=== PATIENT | male | born 1965 | race Caucasian/White ===

== ENCOUNTER 2017-12-17 19:16 | Inpatient (IN) | payer MEDICARE, MEDICAID ==
[~2017-12-17] VITALS: Ht 203.2 cm; Wt 130.2 kg
[2017-12-17] MEDS ORDERED: LUBI24CA5 PO (19:57)
[2017-12-17] MEDS ORDERED: CHOL200026 PO (19:57)
[2017-12-17] MEDS ORDERED: CYAN250010 PO (19:57)
[2017-12-17] MEDS ORDERED: BISA10SU12 RC (19:57)
[2017-12-17] MEDS ORDERED: DOCU-141 PO (19:57)
[2017-12-17] MEDS ORDERED: CRAN405C PO (19:57)
[2017-12-17] MEDS ORDERED: SACC250C PO (19:57)
[2017-12-17] MEDS ORDERED: BACL20TA PO (19:57)
[2017-12-17] MEDS ORDERED: MAG-5 PO (19:57)
[2017-12-17] MEDS ORDERED: NITR0.4T48 SL (19:57)
[2017-12-17] MEDS ORDERED: HYDR2TAB4 PO (19:57)
[2017-12-17] MEDS ORDERED: TIZA4TAB4 PO (19:57)
[2017-12-17] MEDS ORDERED: HYDR-548 PO ×2 (19:57)
[2017-12-17] MEDS ORDERED: MAGN400O6 PO (19:57)
[2017-12-17] MEDS ORDERED: ACET325T53 PO (19:57)
[2017-12-17] MEDS ORDERED: [UNRECOGNIZED DRUG - CODE] PO (19:57)
[2017-12-17] MEDS ORDERED: MELA3TAB PO (19:57)
[2017-12-17] MEDS ORDERED: ACET-2154 PO (19:57)
[2017-12-17] MEDS ORDERED: SENN-167 PO (19:57)
[2017-12-17] MEDS ORDERED: CAYE450C5 PO (19:57)
[2017-12-17] MEDS ORDERED: GABA600T2 PO (19:57)
[2017-12-17] MEDS ORDERED: NA P133E RC (19:57)
[2017-12-17] MEDS ORDERED: CALC400T8 PO (19:57)
[2017-12-17] MEDS ORDERED: MAGN500C16 PO (19:57)
[2017-12-17] MEDS ORDERED: PANT40TA2 PO (19:57)
[2017-12-17] MEDS ORDERED: IPRA3AMP IH (19:57)
[2017-12-17] MEDS ORDERED: NORT25CA PO (19:57)
[2017-12-17] MEDS ORDERED: GARL600T2 PO (19:57)
[2017-12-17] MEDS ORDERED: IV NORMAL SALINE 500 ML BAG IV ONE (20:15)
[2017-12-17] MEDS ORDERED: PANTOPRAZOLE SODIUM IV 80 MG in IV DEXTROSE 5% 100 ML IV ONE (20:15)
[2017-12-17] MEDS ORDERED: PANTOPRAZOLE SODIUM 40 MG VIAL ONE (20:19)
[2017-12-17] MEDS ORDERED: HYDROCODONE/APAP 10-325 MG TABLET PO ONE (20:30)
[2017-12-17 20:32] LABS: BASOPHILS % (AUTO) 0.4 % (0.0-2.0); EOSINOPHILS # (AUTO) 0.2 K/uL (0.0-0.7); EOSINOPHILS % (AUTO) 1.7 % (0.0-7.0); HEMATOCRIT 45.1 % (36.7-47.1); HEMOGLOBIN 15.6 g/dL (12.5-16.3); LYMPHOCYTES # (AUTO) 2.2 K/uL (20.0-40.0); LYMPHOCYTES % (AUTO) 23.8 % (20.5-51.5); MEAN CORPUSCULAR HEMOGLOBIN 29.3 uug (23.8-33.4); MEAN CORPUSCULAR HGB CONC 35 g/dL (32.5-36.3); MEAN CORPUSCULAR VOLUME 84.9 fL (73.0-96.2); MONOCYTES # (AUTO) 0.6 K/uL (2.0-10.0); MONOCYTES % (AUTO) 6.5 % (0.0-11.0); NEUTROPHILS # (AUTO) 6.3 K/uL (1.8-8.9); NEUTROPHILS % (AUTO) 67.6 % (38.5-71.5); PLATELET COUNT (AUTO) 264 K/uL (152-348); RED BLOOD CELL COUNT(AUTO) 5.31 MIL/uL (4.06-5.63); WHITE BLOOD COUNT (AUTO) 9.3 K/uL (3.6-10.2)
[2017-12-17 20:41] LABS: BILIRUBIN,DIRECT 0.1 mg/dL (0.0-0.2); BILIRUBIN,TOTAL 0.4 mg/dL (0.2-1.0); POTASSIUM 3.9 mmol/L (3.5-5.1); TOTAL PROTEIN, SERUM 7.2 g/dL (6.4-8.2)
[2017-12-17] MEDS ORDERED: HYDROCODONE/APAP 10-325 MG TABLET ONE (20:50)
[2017-12-17] MEDS ORDERED: NORMAL SALINE FLUSH 10 ML DISP.SYRIN ONE (21:56)
[2017-12-17] MEDS ORDERED: IV NORMAL SALINE 100 ML ONE (21:56)
[2017-12-17] MEDS ORDERED: SWABABLE VALVE TRANSFER SET EA MC ONE (21:56)
[2017-12-17] MEDS ORDERED: IOHEXOL 300MG/ML 100 ML INFUS..BTL ONE (21:56)
--- NOTE | 2017-12-17 22:06 | NUR ---
all md orders completed, iv fluids admin, meds admin. pt signed ct consent for abd/pelvis ct with iv contrast. pt to ct scan.
--- NOTE | 2017-12-17 23:20 | NUR ---
PT RECEIVED FROM ED VIA [employer]. ORIENTED TO ROOM. A/OX3. ABLE TO MAKE NEEDS KNOWN. V/S STABLE. IN NO ACUTE DISTRESS. NO C/O PAIN AT THIS TIME. 63 SINUS RHYTHM ON THE TELE MONITOR. ON RA, PT STATES SOB SATURATION AT 98%. AFEBRILE. IV INTACT AND PATENT. PT LEFT ARM ELEVATED ON PILLOW, LEFT SIDED PARALYSIS NOTED. ALL NEEDS ATTENDED. SAFETY MAINTAINED. CALL LIGHT REMAINS WITHIN REACH.
[2017-12-18 00:18] VITALS: BP 133/79
[2017-12-18] MEDS ORDERED: LACTULOSE 20 G/30 ML LIQUID UDC PO PRN (01:15)
[2017-12-18] MEDS ORDERED: LACTULOSE 20 G/30 ML LIQUID UDC PO ONE (01:15)
[2017-12-18] MEDS ORDERED: FLEET ENEMA 133 ML BOTTLE RC PRN (01:15)
[2017-12-18] MEDS ORDERED: ACETAMINOPHEN 325 MG TABLET PO PRN (01:15)
[2017-12-18] MEDS ORDERED: Z GUARD REMEDY PASTE 57 GM TUBE TOP PRN (01:15)
[2017-12-18] MEDS: IV NS 1000 ML 1,000 ML IV PRN (01:36)
[2017-12-18 04:00] VITALS: BP 127/76
[2017-12-18] MEDS ORDERED: Medication Not On Formulary EA (Gabapentin 600 MG) PO SCH (06:00)
[2017-12-18] MEDS: HYDROMORPHONE HCL 2 MG TABLET PO PRN ×2 (06:06→10:56)
[2017-12-18 06:14] LABS: BASOPHILS % (AUTO) 0.7 % (0.0-2.0); EOSINOPHILS # (AUTO) 0.2 K/uL (0.0-0.7); EOSINOPHILS % (AUTO) 2.5 % (0.0-7.0); HEMATOCRIT 41.1 % (36.7-47.1); HEMOGLOBIN 14.3 g/dL (12.5-16.3); LYMPHOCYTES # (AUTO) 2.1 K/uL (20.0-40.0); LYMPHOCYTES % (AUTO) 30.3 % (20.5-51.5); MEAN CORPUSCULAR HEMOGLOBIN 29.5 uug (23.8-33.4); MEAN CORPUSCULAR HGB CONC 35 g/dL (32.5-36.3); MEAN CORPUSCULAR VOLUME 85.1 fL (73.0-96.2); MONOCYTES # (AUTO) 0.6 K/uL (2.0-10.0); MONOCYTES % (AUTO) 8.4 % (0.0-11.0); NEUTROPHILS % (AUTO) 58.1 % (38.5-71.5); PLATELET COUNT (AUTO) 228 K/uL (152-348); RED BLOOD CELL COUNT(AUTO) 4.83 MIL/uL (4.06-5.63); WHITE BLOOD COUNT (AUTO) 6.8 K/uL (3.6-10.2)
--- NOTE | 2017-12-18 06:30 | NUR ---
END OF SHIFT NOTES. PT SLEPT INTERMITTENTLY THROUGHOUT SHIFT. IN STABLE CONDITION. PT C/O OF MUSCLE SPASMS CAUSING PAIN 05/30. PT STATES HE MISSED NIGHT TIME BACLOFEN DOSE. MD NOTIFIED. ADMINISTERED DILAUDID PER MD ORDER FOR PAIN MANAGEMENT. PT STATES HE REFUSES TO SPEAK TO ANY MD BUT HIS PRIMARY PHYSICIAN DR. SHAIKH. IVF INFUSING AT THIS TIME. NORMAL SINUS RHYTHM AT 60BPM ON THE TELE MONITOR. ON 2LNC, TOLERATING WELL. AFEBRILE. ALL NEEDS ATTENDED. CALL LIGHT REMAINS WITHIN REACH.
[2017-12-18 06:32] LABS: BILIRUBIN,TOTAL 0.4 mg/dL (0.2-1.0); CREATININE 1.1 mg/dL (0.6-1.3); MAGNESIUM 1.9 mg/dL (1.8-2.4); PHOSPHOROUS 3.8 mg/dL (2.5-4.9); TOTAL PROTEIN, SERUM 6.3 g/dL (6.4-8.2)
[2017-12-18 06:39] LABS: THYROID STIMULATING HORMONE 1.443 mIU/mL (0.358-3.740)
[2017-12-18] MEDS: BACLOFEN 20 MG TABLET PO SCH ×3 (08:33→17:02)
[2017-12-18] MEDS: PANTOPRAZOLE SODIUM 40 MG TABLET.DR PO SCH (08:33)
[2017-12-18] MEDS: TIZANIDINE HCL 4 MG TABLET PO SCH ×3 (08:33→17:02)
[2017-12-18] MEDS: ONDANSETRON 4 MG/2 ML VIAL IV PRN (08:37)
[2017-12-18 11:49] VITALS: BP 123/65
[2017-12-18] MEDS: GABAPENTIN 300 MG CAPSULE PO SCH ×2 (12:38→17:02)
[2017-12-18 15:35] VITALS: BP 117/60
[2017-12-18] MEDS: HYDROCODONE/APAP 10-325 MG TABLET PO PRN (15:42)
--- NOTE | 2017-12-18 17:18 | NUR ---
End of shift note: patient is alert and oriented x4, in no acute distress. No chest pain or SOB noted. Skin is warm and dry to touch. Good urine output, no c/o dysuria. No s/s of bleeding noted. Turned and repositioned as tolerated. Medicated for pain as needed and was helpful. Assisted to the bedside commode as needed. X1 Large BM noted this morning. All needs attended and met. Call light within reach.
--- NOTE | 2017-12-18 19:45 | NUR ---
RECEIVED PATIENT IN BED ALERT, ORIENTED, NO SOB NO CHEST PAIN NOTED, PATIENT RYTHM IS SINUS RYTHM AND SINUS FABRICE WHEN AT REST. NO COMPLAIN OF PAIN AT THIS TIME, CONT TO MONITOR. FAMILY AT BEDSIDE.
[2017-12-18 20:00] VITALS: BP 115/66
[2017-12-18] MEDS: SENNOSIDES 1 TABLET PO SCH (20:57)
[2017-12-18] MEDS: NORTRIPTYLINE HCL 25 MG CAPSULE PO SCH (20:57)
--- NOTE | 2017-12-18 21:32 | NUR ---
PATIENT IV SITE LEAKING, AND HAS REDNESS, REINSERT NEW IV R FOREARM GAUGE 22, TOLERATE WELL.
[2017-12-19] VITALS: BP 122/65
[2017-12-19] MEDS: GABAPENTIN 300 MG CAPSULE PO SCH ×5 (00:12→23:28)
[2017-12-19] MEDS: HYDROCODONE/APAP 10-325 MG TABLET PO PRN (00:13)
[2017-12-19 04:00] VITALS: BP 114/61
[2017-12-19] MEDS: IV NS 1000 ML 1,000 ML IV PRN ×2 (06:01→17:46)
[2017-12-19 06:42] LABS: BASOPHILS % (AUTO) 0.3 % (0.0-2.0); EOSINOPHILS # (AUTO) 0.2 K/uL (0.0-0.7); EOSINOPHILS % (AUTO) 1.5 % (0.0-7.0); HEMATOCRIT 41.9 % (36.7-47.1); HEMOGLOBIN 14.3 g/dL (12.5-16.3); LYMPHOCYTES % (AUTO) 16.8 % (20.5-51.5); MEAN CORPUSCULAR HEMOGLOBIN 28.9 uug (23.8-33.4); MEAN CORPUSCULAR HGB CONC 34 g/dL (32.5-36.3); MEAN CORPUSCULAR VOLUME 84.6 fL (73.0-96.2); MONOCYTES # (AUTO) 0.8 K/uL (2.0-10.0); MONOCYTES % (AUTO) 6.7 % (0.0-11.0); NEUTROPHILS # (AUTO) 8.9 K/uL (1.8-8.9); NEUTROPHILS % (AUTO) 74.7 % (38.5-71.5); PLATELET COUNT (AUTO) 226 K/uL (152-348); RED BLOOD CELL COUNT(AUTO) 4.95 MIL/uL (4.06-5.63); WHITE BLOOD COUNT (AUTO) 11.9 K/uL (3.6-10.2)
[2017-12-19 07:05] LABS: BILIRUBIN,TOTAL 0.6 mg/dL (0.2-1.0); CREATININE 0.9 mg/dL (0.6-1.3); PHOSPHOROUS 3.6 mg/dL (2.5-4.9); TOTAL PROTEIN, SERUM 6.3 g/dL (6.4-8.2)
--- NOTE | 2017-12-19 07:23 | NUR ---
RESTING COMFORTABLY NO SS OF PAIN OR DISTRESS
[2017-12-19] MEDS: BACLOFEN 20 MG TABLET PO SCH ×3 (08:29→16:26)
[2017-12-19] MEDS: PANTOPRAZOLE SODIUM 40 MG TABLET.DR PO SCH (08:29)
[2017-12-19] MEDS: TIZANIDINE HCL 4 MG TABLET PO SCH ×3 (08:29→16:26)
[2017-12-19] MEDS: HYDROMORPHONE HCL 2 MG TABLET PO PRN (10:08)
--- NOTE | 2017-12-19 10:25 | NUR ---
SEEN BY [facility] SEE NOTES. NO SIGNS OF ACTIVE RECTAL BLEEDING. SR ON MONITOR
[2017-12-19 11:26] VITALS: BP 124/56
--- NOTE | 2017-12-19 14:00 | NUR ---
CONSULT OR FROM GI RECEIVED, CONSENT FOR EGD/COLONOSCOPY SIGNED.
[2017-12-19] MEDS ORDERED: MAGNESIUM CITRATE 296 ML BOTTLE PO ONE (14:15)
[2017-12-19] MEDS ORDERED: FLEET ENEMA 133 ML BOTTLE RC ONE (14:15)
[2017-12-19] MEDS ORDERED: GOLYTELY 4000 ML BOTTLE PO ONE (14:15)
[2017-12-19 15:12] VITALS: BP 110/46
--- NOTE | 2017-12-19 16:30 | NUR ---
CONSENT SIGNED FOR EGD AN COLONOSCOPY, BOWEL PREP STARTED FOR AM PROCEDURE PATIENT FAIRLY TOLERATED
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
[2017-12-19] MEDS: NORTRIPTYLINE HCL 25 MG CAPSULE PO SCH (20:18)
[2017-12-19] MEDS: SENNOSIDES 1 TABLET PO SCH (20:19)
[2017-12-19 20:36] VITALS: BP 113/65
[2017-12-20 04:54] VITALS: BP 118/65
--- NOTE | 2017-12-20 05:38 | NUR ---
nsg: pt finished golitely. had bm just now, loose, brown, not clear yet. will call GI at 0630 to notify pt isnt clear yet. cont to monitor.
[2017-12-20] MEDS: GABAPENTIN 300 MG CAPSULE PO SCH ×3 (06:00→17:08)
--- NOTE | 2017-12-20 06:00 | NUR ---
nsg: neurontin for 599 not given, pt is npo.
[2017-12-20 06:32] LABS: CREATININE 0.9 mg/dL (0.6-1.3); POTASSIUM 3.8 mmol/L (3.5-5.1)
--- NOTE | 2017-12-20 06:41 | NUR ---
nsg: pt has had bm x 2, not clear yet. l/m with Dr. Villa.
[2017-12-20 06:43] LABS: BASOPHILS % (AUTO) 0.5 % (0.0-2.0); EOSINOPHILS # (AUTO) 0.2 K/uL (0.0-0.7); EOSINOPHILS % (AUTO) 2.4 % (0.0-7.0); HEMATOCRIT 40.9 % (36.7-47.1); HEMOGLOBIN 13.9 g/dL (12.5-16.3); LYMPHOCYTES # (AUTO) 1.9 K/uL (20.0-40.0); LYMPHOCYTES % (AUTO) 28.9 % (20.5-51.5); MEAN CORPUSCULAR HEMOGLOBIN 28.9 uug (23.8-33.4); MEAN CORPUSCULAR HGB CONC 34 g/dL (32.5-36.3); MONOCYTES # (AUTO) 0.5 K/uL (2.0-10.0); NEUTROPHILS # (AUTO) 3.9 K/uL (1.8-8.9); NEUTROPHILS % (AUTO) 60.2 % (38.5-71.5); PLATELET COUNT (AUTO) 220 K/uL (152-348); RED BLOOD CELL COUNT(AUTO) 4.81 MIL/uL (4.06-5.63)
[2017-12-20 07:10] LABS: WHITE BLOOD COUNT (AUTO) 6.5 K/uL (3.6-10.2)
[2017-12-20] MEDS ORDERED: MAGNESIUM CITRATE 296 ML BOTTLE PO ONE ×2 (07:30)
[2017-12-20] MEDS ORDERED: FLEET ENEMA 133 ML BOTTLE RC ONE ×2 (07:30)
--- NOTE | 2017-12-20 07:35 | NUR ---
nsg: pt received a/ox 4, denies discomfort at this time. no acute distress noted. has left sided weakness on cont ivf. cont to monitor.
[2017-12-20] MEDS: IV NS 1000 ML 1,000 ML IV PRN ×2 (07:51→22:07)
[2017-12-20] MEDS: TIZANIDINE HCL 4 MG TABLET PO SCH ×3 (08:10→17:04)
[2017-12-20] MEDS: BACLOFEN 20 MG TABLET PO SCH ×3 (08:10→17:04)
[2017-12-20] MEDS: PANTOPRAZOLE SODIUM 40 MG VIAL IV SCH (08:16)
[2017-12-20 11:02] VITALS: BP 110/62
[2017-12-20 15:08] VITALS: BP 155/59
[2017-12-20] MEDS ORDERED: GOLYTELY 4000 ML BOTTLE PO ONE ×2 (17:00→23:45)
--- NOTE | 2017-12-20 19:35 | NUR ---
PT RECEIVED IN BED, AWAKE. A/OX4. ABLE TO MAKE NEEDS KNOWN. V/S STABLE. IN NO ACUTE DISTRESS. NO C/O PAIN AT THIS TIME. IVF INFUSING. ON 2L NC, TOLERATING WELL. AFEBRILE. PT ENCOURAGED TO DRINK BOWEL PREP CONTINUOUSLY THROUGHOUT SHIFT. PT SEEN WITH LIQUID BM, BROWN IN COLOR. HOB ELEVATED. SAFETY MEASURES IMPLEMENTED. CALL LIGHT WITHIN REACH.
[2017-12-20 20:00] VITALS: BP 113/68
[2017-12-20] MEDS: SENNOSIDES 1 TABLET PO SCH (20:44)
[2017-12-20] MEDS: NORTRIPTYLINE HCL 25 MG CAPSULE PO SCH (20:44)
--- NOTE | 2017-12-20 23:55 | NUR ---
PT FINISHED GOLYTELY PREP. STOOL CONT TO BE BROWN, LIQUID WITH SOME PARTICLES. ADMINISTERED NEW GOLYTELY BOTTLE PER MD ORDER. PT C/O OF NAUSEA FROM MEDICATION. ZOFRAN ADMINISTERED ORDERED. PT ALSO C/O OF LEFT SIDE CHEST PAIN/CRAMPS THAT RADIATE TO SHOULDER. DILAUDID ADMIN FOR PAIN MANAGEMENT. IN STABLE CONDITION. WILL CONT TO MONITOR.
[2017-12-21] MEDS: HYDROMORPHONE HCL 2 MG TABLET PO PRN (00:12)
[2017-12-21] MEDS: GABAPENTIN 300 MG CAPSULE PO SCH ×3 (00:26→11:46)
[2017-12-21] MEDS: ONDANSETRON 4 MG/2 ML VIAL IV PRN (00:27)
--- NOTE | 2017-12-21 02:00 | NUR ---
PT NOW NPO. HALF OF GOLYTELY BOTTLE CONSUMED. STOOL SEEN BROWN/YELLOW IN COLOR. NO PARTICLES NOTED. WILL CONT TO MONITOR.
[2017-12-21 04:00] VITALS: BP 120/58
--- NOTE | 2017-12-21 06:25 | NUR ---
END OF SHIFT NOTES. PT SLEPT INTERMITTENTLY THROUGHOUT SHIFT. IN STABLE CONDITION. CONT TO BE NPO. ALL NEEDS ATTENDED. SAFETY MAINTAINED. CALL LIGHT WITHIN REACH.
--- NOTE | 2017-12-21 07:30 | NUR ---
PT RECEIVED IN BED, AWAKE. A/OX4. ABLE TO MAKE NEEDS KNOWN. V/S STABLE. IN NO ACUTE DISTRESS. NO C/O PAIN AT THIS TIME. IVF INFUSING. ON 2L NC, TOLERATING WELL. AFEBRILE. PT SEEN WITH LIQUID BM,. HOB ELEVATED. SAFETY MEASURES IMPLEMENTED. CALL LIGHT WITHIN REACH.
[2017-12-21] MEDS: TIZANIDINE HCL 4 MG TABLET PO SCH ×3 (08:11→16:33)
[2017-12-21] MEDS: BACLOFEN 20 MG TABLET PO SCH ×3 (08:11→16:33)
[2017-12-21] MEDS: PANTOPRAZOLE SODIUM 40 MG VIAL IV SCH (08:14)
--- NOTE | 2017-12-21 09:27 | NUR ---
PT WENT TO GI LAB FOR PROCEDURE VIA BED IN STABLE CONDITION.
--- NOTE | 2017-12-21 09:41 | NUR ---
PT IS BACK FROM GI LAB DUE TO MD FRIEND
--- NOTE | 2017-12-21 10:44 | NUR ---
PT WENT TO GI LAB VIA BED FOR PROCEDURE IN STABLE CONDITION.
[2017-12-21 11:43] VITALS: BP 116/63
--- NOTE | 2017-12-21 12:49 | NUR ---
RECEIVED PT FROM RECOVERY ROOM VIA BED IN STABLE CONDITION.
[2017-12-21 15:14] VITALS: BP 120/74
--- NOTE | 2017-12-21 17:15 | NUR ---
D/C ORDERS RECEIVED NOTED AND CARRIED OUT.D/C HEPLOCK PER MD ORDERS,RN REPORT GIVEN TO CORRECTION,PT LEFT THE FACILITY VIA PRIVATE CAR IN STABLE CONDITION.
[2017-12-21] MEDS ORDERED: LIDOCAINE HCL 2% 20 ML VIAL MC ONE (17:24)
[2017-12-21] MEDS ORDERED: PROPOFOL 200 MG/20 ML BOTTLE IV ONE (17:24)
[2017-12-21] MEDS ORDERED: IV NORMAL SALINE 1000 ML BAG IV ONE (17:24)
== END 2017-12-21 17:25 | DRG 394 ==
LOC: ER 19:18 → TELE 23:24 → MED 12-19 18:39
PROVIDERS: ADMIT Nurse Practitioner Acute Care; ATTEND Nurse Practitioner Acute Care
PROC: 0DB68ZX Excision of Stomach, Via Natural or Artificial Opening Endoscopic, Diagnostic (ICD-10-PCS; principal; 2017-12-21 11:00)
PROC: 0DJD8ZZ Inspection of Lower Intestinal Tract, Via Natural or Artificial Opening Endoscopic (ICD-10-PCS; 2017-12-21 11:00)
DX: K64.8 Other hemorrhoids (principal); Q43.8 Other specified congenital malformations of intestine; E11.22 Type 2 diabetes mellitus with diabetic chronic kidney disease; E11.42 Type 2 diabetes mellitus with diabetic polyneuropathy; I49.5 Sick sinus syndrome; E88.09 Other disorders of plasma-protein metabolism, not elsewhere classified; G81.94 Hemiplegia, unspecified affecting left nondominant side; I42.0 Dilated cardiomyopathy; K29.70 Gastritis, unspecified, without bleeding; N20.0 Calculus of kidney; M47.892 Other spondylosis, cervical region; E66.9 Obesity, unspecified; Z68.31 Body mass index [BMI] 31.0-31.9, adult; I12.9 Hypertensive chronic kidney disease with stage 1 through stage 4 chronic kidney disease, or unspecified chronic kidney disease; N18.3 Chronic kidney disease, stage 3 (moderate); K02.9 Dental caries, unspecified; J44.9 Chronic obstructive pulmonary disease, unspecified; G89.4 Chronic pain syndrome; F17.210 Nicotine dependence, cigarettes, uncomplicated; K21.9 Gastro-esophageal reflux disease without esophagitis; G47.30 Sleep apnea, unspecified; E78.5 Hyperlipidemia, unspecified; E27.9 Disorder of adrenal gland, unspecified; Z86.010 Personal history of colon polyps; Z71.3 Dietary counseling and surveillance; R07.89 Other chest pain; F32.9 Major depressive disorder, single episode, unspecified; F41.9 Anxiety disorder, unspecified
CPT/HCPCS: 36415; 70030-TC; 71045; 83605; 83690; 83735; 84100; 84443; 85025; 85730; 86850; 86900; 86901; 88342; 93005; 93307; 97110; 97530; A4217; A4663; C9113; J2405; J3490; J7030; J7040; J7060; Q9967

== ENCOUNTER 2020-06-03 20:30 | Inpatient (IN) | payer MEDICARE, OTHER ==
[~2020-06-03] VITALS: Ht 203.2 cm; Wt 163.0 kg
[~2020-06-03 20:30] MED LIST: ACET-2154 PO; ACET325T53 PO; BACL20TA PO; BISA10SU12 RC; CALC400T29 PO; CAYE450C5 PO; CHOL200026 PO; CRAN405C PO; CYAN250010 PO; DOCU-141 PO; GABA600T12 PO; GARL600T2 PO; GUAI-1197 PO; HYDR-4354 PO; IPRA3AMP23 IH; LUBI24CA5 PO; MAG-5 PO; MAGN400O6 PO; MAGN500C16 PO; MELA3TAB41 PO; NA P133E RC; NITR0.4T48 SL; NORT25CA PO; PANT40TA2 PO; SACC250C PO; SENN-261 PO; TIZA4TAB5 PO
[2020-06-03] MEDS ORDERED: ASPIRIN 81 MG TAB.CHEW PO ONE (21:15)
[2020-06-03] MEDS ORDERED: HYDROCODONE/APAP 10-325 MG TABLET PO ONE (21:15)
--- NOTE | 2020-06-03 21:30 | NUR ---
Pt. admitted to Med/Surg, under care of Kathie Bradford NP Diagnosis: Rib Contusion/Chronic Pain Syndrome. Belongs List completed
[2020-06-03] MEDS ORDERED: ASPIRIN 81 MG TAB.CHEW ONE (21:38)
[2020-06-03] MEDS ORDERED: HYDROCODONE/APAP 10-325 MG TABLET ONE (21:39)
[2020-06-03 21:42] LABS: BASOPHILS # (AUTO) 0.1 K/uL (0.0-8.0); BASOPHILS % (AUTO) 0.9 % (0.0-2.0); EOSINOPHILS # (AUTO) 0.1 K/uL (0.0-0.7); EOSINOPHILS % (AUTO) 1.7 % (0.0-7.0); HEMATOCRIT 45.5 % (36.7-47.1); HEMOGLOBIN 15.5 g/dL (12.5-16.3); LYMPHOCYTES % (AUTO) 24.3 % (20.5-51.5); MEAN CORPUSCULAR HEMOGLOBIN 29.5 uug (23.8-33.4); MEAN CORPUSCULAR HGB CONC 34 g/dL (32.5-36.3); MEAN CORPUSCULAR VOLUME 86.7 fL (73.0-96.2); MONOCYTES # (AUTO) 0.7 K/uL (2.0-10.0); MONOCYTES % (AUTO) 8.5 % (0.0-11.0); NEUTROPHILS # (AUTO) 5.3 K/uL (1.8-8.9); NEUTROPHILS % (AUTO) 64.6 % (38.5-71.5); PLATELET COUNT (AUTO) 234 K/uL (152-348); RED BLOOD CELL COUNT(AUTO) 5.25 MIL/uL (4.06-5.63); WHITE BLOOD COUNT (AUTO) 8.2 K/uL (3.6-10.2)
[2020-06-03] MEDS ORDERED: HYDROCODONE/APAP 5-325MG TABLET PO PRN (21:45)
[2020-06-03] MEDS ORDERED: ENOXAPARIN SODIUM 40 MG/0.4 ML DISP.SYRIN SQ SCH (21:45)
[2020-06-03] MEDS ORDERED: ONDANSETRON 4 MG/2 ML VIAL IV PRN (21:45)
[2020-06-03] MEDS ORDERED: MAGNESIUM HYDROXIDE 30 ML LIQUID UDC PO PRN (21:45)
[2020-06-03] MEDS ORDERED: ACETAMINOPHEN 325 MG TABLET PO PRN (21:45)
[2020-06-03] MEDS ORDERED: Z GUARD REMEDY PASTE 57 GM TUBE TOP PRN (21:45)
[2020-06-03 21:51] LABS: CREATININE 1.3 mg/dL (0.6-1.3); POTASSIUM 4.3 mmol/L (3.5-5.1)
[2020-06-03] MEDS ORDERED: ALBU18HF2 IH (21:54)
[2020-06-03] MEDS ORDERED: [UNRECOGNIZED DRUG - OTHER] PR (21:54)
[2020-06-03] MEDS ORDERED: B1/B1TAB5 PO (21:54)
[2020-06-03] MEDS ORDERED: RANO500T3 PO (21:54)
[2020-06-03] MEDS ORDERED: ASCO-375 PO (21:54)
[2020-06-03] MEDS ORDERED: HYDR25SU33 RC (21:54)
[2020-06-03] MEDS ORDERED: FURO20TA4 PO (21:54)
[2020-06-03] MEDS ORDERED: LOSA50TA39 PO (21:54)
[2020-06-03] MEDS ORDERED: MENT118G TP (21:54)
[2020-06-03] MEDS ORDERED: [UNRECOGNIZED DRUG - OTHER] TD (21:54)
[2020-06-03] MEDS ORDERED: POLY17PO4 PO (21:54)
[2020-06-03] MEDS ORDERED: METH-406 PO (21:54)
[2020-06-03] MEDS ORDERED: LACT1CAP71 PO (21:54)
[2020-06-03] MEDS ORDERED: RIVA20TA PO (21:54)
[2020-06-03] MEDS ORDERED: ISOS60TA4 PO (21:54)
[2020-06-03] MEDS ORDERED: ACET12.54 PO (21:54)
[2020-06-03] MEDS ORDERED: hydrocortisone cream TOP (21:54)
[2020-06-03] MEDS ORDERED: METO25TA6 PO (21:54)
[2020-06-03] MEDS ORDERED: HYDROCORTISONE RECTAL SUPP 25 MG EACH RC PRN (22:00)
[2020-06-03] MEDS ORDERED: NITROGLYCERIN 0.4 MG/TAB BOTTLE SL PRN (22:00)
[2020-06-03] MEDS ORDERED: BISACODYL 10 MG SUPP.RECT RC PRN (22:00)
[2020-06-03 22:04] LABS: BILIRUBIN,DIRECT 0.1 mg/dL (0.0-0.2); BILIRUBIN,TOTAL 0.7 mg/dL (0.2-1.0); TOTAL PROTEIN, SERUM 7.3 g/dL (6.4-8.2)
[2020-06-03] MEDS ORDERED: MORPHINE SULFATE 2 MG/1 ML DISP.SYRIN IV ONE (23:30)
[2020-06-04] MEDS ORDERED: ALBUTEROL SULFATE 2.5 MG/ 0.5 ML NEBU NEB PRN ×2 (00:30→15:45)
[2020-06-04 00:45] VITALS: BP 111/42
--- NOTE | 2020-06-04 01:00 | NUR ---
Patient brought to med-surg in room 302 from Er via gurney .ALOx4 with d/x of Rib pain s/p fall. Left side hemiplegia.On room air.Denies SOB, no s/s of distress noted at this time.IV site intact on Right hand 20 g.Started Ns 0.9 % at 75 cc/ml.Tolerated well.Patient uses urinal.Head to toe body assessment done.No skin breakdown.Patient c/o lower back pain,Medicated with PRN med with relief.Call light and belongings with in reach.Bed locked in lowest position with side rails 2x up.Will continue to monitor.
[2020-06-04] MEDS: IV NS 1000 ML 1,000 ML IV PRN ×2 (02:09→15:48)
[2020-06-04 04:00] VITALS: BP 102/36
[2020-06-04] MEDS: GABAPENTIN 400 MG CAPSULE PO SCH ×3 (06:06→17:33)
[2020-06-04] MEDS: PANTOPRAZOLE SODIUM 40 MG TABLET.DR PO SCH (06:25)
--- NOTE | 2020-06-04 06:27 | NUR ---
Patient asleep with 02 inhalation at 3LPm via NC.Denies pain at this time.Continue safety measures.Fall precaution observed.Call light with in reach.
[2020-06-04 06:49] LABS: BASOPHILS # (AUTO) 0.1 K/uL (0.0-8.0); BASOPHILS % (AUTO) 0.8 % (0.0-2.0); EOSINOPHILS # (AUTO) 0.2 K/uL (0.0-0.7); EOSINOPHILS % (AUTO) 2.3 % (0.0-7.0); HEMATOCRIT 43.4 % (36.7-47.1); HEMOGLOBIN 14.5 g/dL (12.5-16.3); LYMPHOCYTES # (AUTO) 2.7 K/uL (20.0-40.0); LYMPHOCYTES % (AUTO) 37.1 % (20.5-51.5); MEAN CORPUSCULAR HEMOGLOBIN 29.3 uug (23.8-33.4); MEAN CORPUSCULAR HGB CONC 34 g/dL (32.5-36.3); MEAN CORPUSCULAR VOLUME 87.4 fL (73.0-96.2); MONOCYTES # (AUTO) 0.6 K/uL (2.0-10.0); MONOCYTES % (AUTO) 8.6 % (0.0-11.0); NEUTROPHILS # (AUTO) 3.7 K/uL (1.8-8.9); NEUTROPHILS % (AUTO) 51.2 % (38.5-71.5); PLATELET COUNT (AUTO) 222 K/uL (152-348); RED BLOOD CELL COUNT(AUTO) 4.96 MIL/uL (4.06-5.63); WHITE BLOOD COUNT (AUTO) 7.3 K/uL (3.6-10.2)
[2020-06-04 07:00] LABS: BILIRUBIN,TOTAL 0.5 mg/dL (0.2-1.0); CREATININE 1.3 mg/dL (0.6-1.3); MAGNESIUM 2.3 mg/dL (1.8-2.4); PHOSPHOROUS 3.2 mg/dL (2.5-4.9); POTASSIUM 3.6 mmol/L (3.5-5.1); TOTAL PROTEIN, SERUM 6.4 g/dL (6.4-8.2)
--- NOTE | 2020-06-04 07:30 | NUR ---
Received patient resting bed awake, alert and oriented times 4. Patient reports pain of 8/10 in his left rib, will check eMAR to see what patient has available to him. IV is in the right hang 20 gauge running NS at 75 mls/hr. Patient has brace on his left hand and reports a lump on his left scapula that is painless. Will report to the MD. Will also inquire about a bed extension and call engineering to check air conditioning. Safety precautions are in place, with call light and belongings within reach. Will continue to monitor.
[2020-06-04] MEDS: RANOLAZINE 500 MG TAB.ER.12H PO SCH ×2 (08:34→17:32)
[2020-06-04] MEDS: BACLOFEN 20 MG TABLET PO SCH ×4 (08:34→20:39)
[2020-06-04] MEDS: ISOSORBIDE MONONITRATE 30 MG TAB.SR.24H PO SCH (08:38)
[2020-06-04] MEDS: FUROSEMIDE 20 MG TABLET PO SCH ×2 (08:38→17:33)
[2020-06-04] MEDS: ASCORBIC ACID 500 MG TABLET PO SCH (08:38)
[2020-06-04] MEDS: METHOCARBAMOL 500 MG TABLET PO SCH ×2 (08:38→17:33)
[2020-06-04] MEDS: LOSARTAN POTASSIUM 50 MG TABLET PO SCH (08:38)
[2020-06-04] MEDS: CULTURELLE CAPSULE PO SCH (08:38)
[2020-06-04] MEDS ORDERED: Medication Not On Formulary EA (Rivaroxaban (Xarelto) 10 MG) PO SCH (09:00)
[2020-06-04] MEDS ORDERED: Medication Not On Formulary EA (Lubiprostone (Amitiza) 24 MCG) PO SCH (09:00)
[2020-06-04] MEDS ORDERED: METHOCARBAMOL 750 MG TABLET PO SCH (09:00)
[2020-06-04] MEDS ORDERED: METOPROLOL TARTRATE 25 MG TABLET PO SCH (09:00)
[2020-06-04] MEDS: HYDROCODONE/APAP 10-325 MG TABLET PO PRN ×2 (09:39→15:48)
[2020-06-04] MEDS: METOPROLOL TARTRATE 25 MG TABLET PO SCH (11:17)
[2020-06-04] MEDS ORDERED: HYDROCORTISONE 2.5 % RECTAL CREAM 28.35 GM TUBE RC PRN (11:30)
[2020-06-04 11:36] VITALS: BP 103/49
[2020-06-04 15:25] VITALS: BP 104/49
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
--- NOTE | 2020-06-04 17:17 | NUR ---
4:54pm: OSEI spoke with case folder Tigre and discussed patient's needs. Tigre stated that case management would be in contact with the patient tomorrow in order to discuss discharge plans and options.
--- NOTE | 2020-06-04 17:30 | NUR ---
Per Dr Prieto take patient off oxygen because there is no indication for it. The patient saturates at 96% without supplemental oxygen. Will continue to monitor.
[2020-06-04] MEDS: RIVAROXABAN 10 MG TABLET PO SCH (17:32)
[2020-06-04] MEDS: MIRALAX 17 GM POWD.PACK PO SCH (18:01)
--- NOTE | 2020-06-04 18:46 | NUR ---
Patient is resting comfortably in bed with no signs of respiratory distress noted. Patient oxygen has been off since order was given. All medications given as ordered. Safety precautions are in place with call light and belongings within reach. Will endorse to the oncoming nurse.
[2020-06-04 20:00] VITALS: BP 101/53
--- NOTE | 2020-06-04 20:00 | NUR ---
Patient asleep in bed. Appears to be in no acute distress. Safety precautions in place per protocol. Call light within reach.
[2020-06-04] MEDS: NORTRIPTYLINE HCL 25 MG CAPSULE PO SCH (20:39)
[2020-06-04] MEDS: MELATONIN 3 MG TABLET PO SCH (20:39)
[2020-06-04] MEDS ORDERED: SENNOSIDES 1 TABLET PO SCH (21:00)
--- NOTE | 2020-06-04 21:00 | NUR ---
Pt had 8.6tablet of Senokot. Got 9 tablet out of Pyxis. Pt just took just 2 tablet. The rest was wasted. Another nurse witness the waste medications.Pt in no acute distress and stable. Charge nurse aware of the situation.
[2020-06-05] MEDS: GABAPENTIN 400 MG CAPSULE PO SCH ×4 (00:43→17:16)
[2020-06-05 04:00] VITALS: BP 104/47
[2020-06-05] MEDS: IV NS 1000 ML 1,000 ML IV PRN (05:44)
[2020-06-05] MEDS: PANTOPRAZOLE SODIUM 40 MG TABLET.DR PO SCH (06:01)
--- NOTE | 2020-06-05 06:42 | NUR ---
Patient in bed sleeping. Appears to be calm and in no acute distress. No s/s of respiratory problems. No s/s of pain or any discomfort at this time. safety precautions have been initiated per protocol. Bed is locked and in the lowest position and call light is within reach.
--- NOTE | 2020-06-05 07:10 | NUR ---
Talked with Chong (communications technologist) regarding the medication Sennokot.
[2020-06-05] MEDS: METHOCARBAMOL 500 MG TABLET PO SCH ×2 (08:51→16:08)
[2020-06-05] MEDS: CULTURELLE CAPSULE PO SCH (08:53)
[2020-06-05] MEDS: ASCORBIC ACID 500 MG TABLET PO SCH (08:53)
[2020-06-05] MEDS: FUROSEMIDE 20 MG TABLET PO SCH ×2 (08:53→16:16)
[2020-06-05] MEDS: RANOLAZINE 500 MG TAB.ER.12H PO SCH ×2 (08:53→16:16)
[2020-06-05] MEDS: BACLOFEN 20 MG TABLET PO SCH ×4 (08:54→20:00)
[2020-06-05] MEDS: LOSARTAN POTASSIUM 50 MG TABLET PO SCH (08:54)
[2020-06-05] MEDS: ISOSORBIDE MONONITRATE 30 MG TAB.SR.24H PO SCH (08:54)
[2020-06-05] MEDS: LIDOCAINE 5% PATCH TD SCH (08:55)
[2020-06-05] MEDS: METOPROLOL TARTRATE 25 MG TABLET PO SCH (08:55)
[2020-06-05] MEDS: MIRALAX 17 GM POWD.PACK PO SCH (08:55)
[2020-06-05] MEDS ORDERED: MIRALAX 17 GM POWD.PACK PO SCH (09:00)
--- NOTE | 2020-06-05 09:00 | NUR ---
patient is alert awake, no sob, resp even nonlabored,skin warm and dry to touch, left sided weakness, no distress noted
--- NOTE | 2020-06-05 10:00 | NUR ---
Pt in bed, sleeping, easy to arouse. No s/s of acute distress noted. V/S stable on room air. RH20 is intact with NS running at 75cc. Pt noted to have L sided weakness. Safety measures in place. Bed low and locked in position. Bed alarm on. Call light within reach. Will continue with the plan of care.
--- NOTE | 2020-06-05 10:01 | NUR ---
report given to Devan KOVACS.
[2020-06-05 11:55] VITALS: BP 135/67
--- NOTE | 2020-06-05 14:22 | NUR ---
This SW faxed the SOC 341 form to the [facility] at [phone] (tel # [phone]).
[2020-06-05] MEDS ORDERED: LIDO30AD10 TD (15:12)
[2020-06-05] MEDS ORDERED: HYDR28.316 RC (15:12)
[2020-06-05] MEDS ORDERED: RIVA10TA PO (15:12)
[2020-06-05] MEDS ORDERED: MAGN400O6 PO (15:12)
[2020-06-05] MEDS ORDERED: SENN-261 PO (15:12)
[2020-06-05] MEDS ORDERED: METH500T6 PO (15:12)
[2020-06-05] MEDS ORDERED: POLY17PO4 PO (15:12)
[2020-06-05] MEDS ORDERED: PANT40TA2 PO (15:12)
[2020-06-05 16:00] VITALS: BP 126/63
[2020-06-05] MEDS: RIVAROXABAN 10 MG TABLET PO SCH (16:10)
[2020-06-05] MEDS: HYDROCODONE/APAP 10-325 MG TABLET PO PRN (17:16)
--- NOTE | 2020-06-05 18:27 | NUR ---
Pt in bed, eating dinner. Denies any acute distress or pain at this time. V/S stable on room air. All prescribed medications given, patient tolerated. Comfort care and needs attended. Fall precaution maintained. Safety measures in place. Call light within reach. Will endorse to oncoming nurse accordingly.
--- NOTE | 2020-06-05 19:30 | NUR ---
Patient resting in bed. Reported pain 8/10 in middle left side of back and was requesting IV pain medication.
--- NOTE | 2020-06-05 19:55 | NUR ---
Dr. Bradford was notified and ordered 1mg of IV morphine.
[2020-06-05 20:00] VITALS: BP 119/61
[2020-06-05] MEDS: NORTRIPTYLINE HCL 25 MG CAPSULE PO SCH (20:00)
[2020-06-05] MEDS ORDERED: MORPHINE SULFATE 2 MG/1 ML DISP.SYRIN IV ONE (20:00)
[2020-06-05] MEDS: MELATONIN 3 MG TABLET PO SCH (20:00)
[2020-06-05] MEDS ORDERED: SENNOSIDES 1 TABLET PO SCH (21:00)
--- NOTE | 2020-06-05 22:30 | NUR ---
Patient given 1mg of morphine for back pain 03/30 at 2138. At 2148 patient was given zofran 4mg for nausea. At this time patient states that his pain is relieved and no more nausea.
[2020-06-06] MEDS: GABAPENTIN 400 MG CAPSULE PO SCH ×4 (00:40→17:22)
[2020-06-06 04:00] VITALS: BP 111/52
--- NOTE | 2020-06-06 06:05 | NUR ---
patient in bed alert and relaxed. Does not appear to be in any acute distress. Patient on RA with no s/s of respiratory distress. IV site intact right hand 22 gauge. Patient tolerated all medications given throughout the shift. Bed is locked and in lowest position. Call light is within reach.
[2020-06-06] MEDS: PANTOPRAZOLE SODIUM 40 MG TABLET.DR PO SCH (06:27)
--- NOTE | 2020-06-06 08:00 | NUR ---
Patient in bed asleep arousable by name AOx4, on RA complaining of SOB but saturation 92%, O2 NC at bedside. With chronic left side weakness. IV on left hand 22g flushed and patent. Complained of left side of the back pain, will give pain meds as ordered. Safety precaution in place. call light and belongings within reach.
--- NOTE | 2020-06-06 08:45 | NUR ---
Patient's BP 126/48 HR-67. Will give Lasix but hold Losartan and Metoprolol for now. Will check BP again later
[2020-06-06] MEDS: RANOLAZINE 500 MG TAB.ER.12H PO SCH ×2 (08:47→16:20)
[2020-06-06] MEDS: METHOCARBAMOL 500 MG TABLET PO SCH ×2 (08:47→16:20)
[2020-06-06] MEDS: BACLOFEN 20 MG TABLET PO SCH ×3 (08:48→16:20)
[2020-06-06] MEDS: CULTURELLE CAPSULE PO SCH (08:49)
[2020-06-06] MEDS: LIDOCAINE 5% PATCH TD SCH (08:49)
[2020-06-06] MEDS: FUROSEMIDE 20 MG TABLET PO SCH ×2 (08:49→16:20)
[2020-06-06] MEDS: ASCORBIC ACID 500 MG TABLET PO SCH (08:49)
[2020-06-06] MEDS: ISOSORBIDE MONONITRATE 30 MG TAB.SR.24H PO SCH (08:49)
[2020-06-06] MEDS: MIRALAX 17 GM POWD.PACK PO SCH (08:50)
[2020-06-06] MEDS: METOPROLOL TARTRATE 25 MG TABLET PO SCH (09:00)
[2020-06-06] MEDS: LOSARTAN POTASSIUM 50 MG TABLET PO SCH (09:00)
[2020-06-06] MEDS ORDERED: MORPHINE SULFATE 2 MG/1 ML DISP.SYRIN IV PRN (11:30)
[2020-06-06 11:42] VITALS: BP 110/63
[2020-06-06] MEDS: RIVAROXABAN 10 MG TABLET PO SCH (16:23)
[2020-06-06 16:39] VITALS: BP 104/58
--- NOTE | 2020-06-06 17:12 | NUR ---
Gave report to Nai KOVACS in SNF
--- NOTE | 2020-06-06 17:44 | NUR ---
Patient started yelling, getting angry and trying to get out of bed, threw pillows on the floor. Complained that no one helped him and gave him the stuff he needed, but nurse and AUTOMOTIVE ASSEMBLER was just in the room helping and attended the needs of patient. Calmed patient down and put him back to bed.
--- NOTE | 2020-06-06 18:30 | NUR ---
Pt discharged via [facility] awake AOx4, denied SOB or distress at this time. IV and ID band removed. Brace reapplied on patient. DC instructions and forms signed and given to ambulance personnel. Belongings list signed and all accounted for. Patient had dinner before he left. No other complaints at this time.
== END 2020-06-06 18:57 | DRG 605 ==
LOC: ER 20:33 → MEDSURG3 23:55
PROVIDERS: ADMIT Nurse Practitioner Acute Care; ATTEND Nurse Practitioner Acute Care
DX: S20.212A Contusion of left front wall of thorax, initial encounter (principal); I69.354 Hemiplegia and hemiparesis following cerebral infarction affecting left non-dominant side; J98.11 Atelectasis; W19.XXXA Unspecified fall, initial encounter; E66.01 Morbid (severe) obesity due to excess calories; Z68.39 Body mass index [BMI] 39.0-39.9, adult; E78.5 Hyperlipidemia, unspecified; F32.9 Major depressive disorder, single episode, unspecified; J44.9 Chronic obstructive pulmonary disease, unspecified; I10 Essential (primary) hypertension; K21.9 Gastro-esophageal reflux disease without esophagitis; G47.33 Obstructive sleep apnea (adult) (pediatric); F41.9 Anxiety disorder, unspecified; G62.9 Polyneuropathy, unspecified; G89.4 Chronic pain syndrome; K64.9 Unspecified hemorrhoids; K76.0 Fatty (change of) liver, not elsewhere classified; Y92.129 Unspecified place in nursing home as the place of occurrence of the external cause; Z87.442 Personal history of urinary calculi; Z87.01 Personal history of pneumonia (recurrent); Z87.891 Personal history of nicotine dependence; R73.9 Hyperglycemia, unspecified; Z71.3 Dietary counseling and surveillance; Z91.018 Allergy to other foods; M47.9 Spondylosis, unspecified
CPT/HCPCS: 36415; 70030-TC; 71045; 71111; 83735; 84100; 85025; 93005; A4663; G0378; J2270; J2405; J7030